=== PATIENT | female | born 1970 | race Caucasian/White ===

== ENCOUNTER 2017-04-08 22:52 | Observation (INO) | payer OTHER ==
--- NOTE | 2017-04-08 23:01 | PDOC ---
History of Present Illness - General History Source: Patient, Family Exam Limitations: No Limitations - History of Present Illness Initial Comments: 04/08/17 23:46 The patient is a 47 year old female, accompanied by two daughters, with a significant past medical history of TIA (2005), hypertension, congestive heart failure, remote history of pulmonary stenosis who presents to the emergency department by EMS s/p accidental overdose. The patient reports that she took three 1mg Klonopin, two 10mg Vicodin, Trazodone, Prozac, Qsymia and a sip of beer approx. one hour ago to help her sleep. The patient reports that she took two 1mg Klonopin at approx. two in the afternoon as well. The patient's daughter reports her mother was found unresponsive and cyanotic at home so she called 911. The patient reports waking up in the ambulance. The patient denies suicidal ideation and states she did not want to harm herself. She denies recent chest pain or shortness of breath. Allergies: NKA Primary Care Physician: Dr. Abel Boswell <Gibson Baum - Last Filed: 04/09/17 02:02> <Kem Chung - Last Filed: 04/09/17 02:29> - General Stated Complaint: ACCIDENTAL OVERDOSE Time Seen by Provider: 04/08/17 23:01 Past History <Gibson Baum - Last Filed: 04/09/17 02:02> - Past Medical History Cardiac Disorders: Yes CVA: Yes HTN: Yes - Surgical History Cardiac Surgery: Yes - Psycho/Social/Smoking Cessation Hx Anxiety: Yes Suicidal Ideation: No Smoking History: Current every day smoker Number of Cigarettes Smoked Daily: 20 'Breaking Loose' booklet given: 06/13/15 Hx Alcohol Use: Yes Drug/Substance Use Hx: No Substance Use Type: Alcohol <Kem Chung - Last Filed: 04/09/17 02:29> - Past Medical History Allergies/Adverse Reactions: Allergies Allergy/AdvReac Type Severity Reaction Status Date / Time No Known Allergies Allergy Verified 04/09/17 01:53 Home Medications: Ambulatory Orders Hydrocortisone 0.5% Cream [Hytone 0.5% Cream -] 1 applic TP TID #1 tube Review of Systems - Review of Systems Comments:: 04/08/17 23:49 CONSTITUTIONAL: +Fatigue. No fever, no chills. EYES: No visual changes ENT: No ear pain, no sore throat CARDIOVASCULAR: No chest pain, no palpitations RESPIRATORY: No cough, no SOB GI: No abdominal pain, no nausea, no vomiting, no constipation, no diarrhea GENITOURINARY: No dysuria, no frequency, no hematuria MUSKULOSKELETAL: No backpain, no joint pain, no myalgias SKIN: No rash NEURO: No headache <Gibson Baum - Last Filed: 04/09/17 02:02> *Physical Exam - Vital Signs Last Vital Signs Temp Pulse Resp BP Pulse Ox 98.0 F 76 18 122/88 99 04/08/17 23:03 04/08/17 23:03 04/08/17 23:03 04/08/17 23:03 04/08/17 23:03 - Physical Exam Comments: 04/09/17 00:01 CONSTITUTIONAL: Well-appearing; well-nourished; in no apparent distress HEAD: +Facial rosacea. EYES: PERRL; EOM intact ENMT: External appears normal; normal oropharynx NECK: Supple; non-tender; no cervical lymphadenopathy CARD: Normal S1, S2; no murmurs, rubs, or gallops RESP: Normal chest excursion with respiration; breath sounds clear and equal bilaterally; no wheezes, rhonchi, or rales ABD: Soft, non-distended; non-tender; no palpable organomegaly, no palpable hernias EXT: Normal ROM in all four extremities; non-tender to palpation; distal pulses intact SKIN: Warm, dry, no rash NEURO: No focal neurological deficiencies. <Gibson Baum - Last Filed: 04/09/17 02:02> Heart Score/ECG Review - ECG Intrepretation Comment:: 04/09/17 02:29 69, normal sinus rhythm, right atrial enlargement, ALONDRA, negative voltage criteria for LVH, no ST-T abnormalities, abnormal EKG. <Kem Chung - Last Filed: 04/09/17 02:29> ED Treatment Course - LABORATORY CBC & Chemistry Diagram: 04/09/17 00:02 04/09/17 00:02 <Gibson Baum - Last Filed: 04/09/17 02:02> - LABORATORY CBC & Chemistry Diagram: 04/09/17 00:02 04/09/17 00:02 <Kem Chung - Last Filed: 04/09/17 02:29> Medical Decision Making - Medical Decision Making 04/09/17 00:03 Patient is a 47-year-old female with history of CHF, TIA, smoking, anxiety and depression presents to the ER for a suspected benzodiazepines/opiate overdose. Patient reports that she had consumed 5 tablets of Klonopin-1 mg each and 2 Vicodin-10 mg each shortly prior to arrival and was found unresponsive and cyanotic, requiring administration of Narcan by EMS to regain normal mental status. Patient also reports that she taken trazodone Prozac and several sips of beer prior to the episode of unresponsiveness. Patient denies suicidal ideations. There is no previous history of suicidal attempts. On initial evaluation, patient is awake and alert, oriented 3; neurological exam reveals no focal deficits; lungs are clear to auscultation; there is no petechial rash. Will obtain CBC/CMP/set amount level/salicylate level/drug screen. Will observe. We'll administer additional doses of Narcan for respiratory depression or pupillary constriction. Given the long half-life of Klonopin, patient will require placement in observation for further episodes of respiratory depression. 04/09/17 02:04 Patient reassessed. Patient is noted to be lethargic with constricted pupils. Patient received 0.4 mg Narcan IV with complete arousable. Will place an knob's for further evaluation. <Kem Chung - Last Filed: 04/09/17 02:29> *DC/Admit/Observation/Transfer - Attestations Scribe Attestion: 04/08/17 23:51 Documentation prepared by Gibson Baum, acting as medical office manager for Kem Chung MD. <Gibson Baum - Last Filed: 04/09/17 02:02> - Discharge Dispostion Admit: Yes - Attestations Physician Attestion: 04/09/17 01:57 The documentation was prepared by the scribe under my direct supervision. I have reviewed the documentation which correctly represents the findings, medical decision-making and critical action taken by me. <Kem Chung - Last Filed: 04/09/17 02:29> Diagnosis at time of Disposition: Polypharmacy Accidental overdose Qualifiers: Encounter type: initial encounter Qualified Code(s): T50.901A - Poisoning by unspecified drugs, medicaments and biological substances, accidental ( unintentional), initial encounter Benzodiazepine (tranquilizer) overdose Qualifiers: Encounter type: initial encounter Injury intent: accidental or unintentional Qualified Code(s): T42.4X1A - Poisoning by benzodiazepines, accidental ( unintentional), initial encounter - Referrals Referrals: Abel Boswell [Primary Care Provider] -
[2017-04-08] MEDS ORDERED: NALOXONE HCL 0.4 MG/ML VIAL ONE (23:05)
[2017-04-08] MEDS ORDERED: ONDANSETRON 4 MG/2 ML VIAL ONE (23:06)
[2017-04-09 00:44] LABS: BASOPHIL 0.3 % (0-2.0); EOSINOPHIL 0.5 % (0-4.5); MCH 31.7 pg (25.7-33.7); MEAN CELL VOLUME 93.3 fl (80-96); MEAN PLT VOLUME 7.7 fl (7.5-11.1); NEUTROPHILS 87.1 % (42.8-82.8); PLATELET COUNT 227 K/MM3 (134-434); RDW 13.3 % (11.6-15.6); WHITE BLOOD COUNT 17.9 K/mm3 (4.0-10.0)
[2017-04-09 01:13] LABS: ALBUMIN 3.8 g/dl (3.4-5.0); ALK PHOS 78 U/L (45-117); ANION GAP 7 (8-16); BILIRUBIN,TOTAL 0.2 mg/dL (0.2-1.0); CALCIUM 8.6 mg/dL (8.5-10.1); CO2 31 mmol/L (21-32); CREATININE 0.9 mg/dL (0.55-1.02); GLUCOSE,RANDOM 115 mg/dL (74-106); SGOT/AST 13 U/L (15-37); SGPT/ALT 25 U/L (12-78); TOT PROT 6.5 g/dl (6.4-8.2)
[2017-04-09 01:19] LABS: ALCOHOL < 5.0 mg/dl (0-5)
[2017-04-09 01:50] LABS: URINE MARIJUANA THC POSITIVE ng/ml (CUTOFF=50)
[2017-04-09 01:52] LABS: SALICYLATE < 4.0 mg/dl (0.0-30.0)
[2017-04-09] MEDS ORDERED: NALOXONE HCL 0.4 MG/ML VIAL ONE (01:52)
[2017-04-09] MEDS ORDERED: ONDANSETRON 4 MG/2 ML VIAL IVPB PRN (01:57)
[2017-04-09] MEDS ORDERED: NICOTINE 14 MG/24 HOURS TOPICAL PATCH TD ONE (02:00)
--- NOTE | 2017-04-09 03:29 | HP ---
CHIEF COMPLAINT: accidental overdose. PCP: Dr. Abel Boswell HISTORY OF PRESENT ILLNESS: 47 yo F with significant PMHx of DM, TIA (2005), HTN, CHF, h/o pulmonary stenosis who presents to the emergency department by EMS s/p accidental overdose. The patient reports that she took three 1mg Klonopin, two 10mg Vicodin , Trazodone, Prozac, Qsymia ealier in the evening to help her sleep. The patient reports that she took two 1mg Klonopin at approx. two in the afternoon as well. Her daughtered reports her mother was found unresponsive and cyanotic at home so she called 911. The patient reports waking up in the ambulance. The patient denies suicidal ideation and states she did not want to harm herself. She denies recent chest pain or shortness of breath. ER course was notable for: (1)Given Narcane 0.4mg (2)EKG shows NSR , SHANNON, no st or t wave abnormality (3) Recent Travel:denies PAST MEDICAL HISTORY: TIA (2005), HTN, CHF, h/o pulmonary stenosis, depression, and anxiety , obesity and DM PAST SURGICAL HISTORY: VSD closure. Social History: Smokinppd Alcohol:socially Drugs: marijuana Family History: Father - ASHD Allergies No Known Allergies Allergy (Verified 04/09/17 01:53) HOME MEDICATIONS: Home Medications Medication Instructions Recorded Hydrocortisone 0.5% Cream [Hytone 1 applic TP TID #1 tube 06/13/15 0.5% Cream -] REVIEW OF SYSTEMS CONSTITUTIONAL: Absent: fever, chills, diaphoresis, generalized weakness, malaise, loss of appetite, weight change HEENT: Absent: rhinorrhea, nasal congestion, throat pain, throat swelling, difficulty swallowing, mouth swelling, ear pain, eye pain, visual changes CARDIOVASCULAR: Absent: chest pain, syncope, palpitations, irregular heart rate, lightheadedness , peripheral edema RESPIRATORY: Absent: cough, shortness of breath, dyspnea with exertion, orthopnea, wheezing, stridor, hemoptysis GASTROINTESTINAL: Absent: abdominal pain, abdominal distension, nausea, vomiting, diarrhea, constipation, melena, hematochezia GENITOURINARY: Absent: dysuria, frequency, urgency, hesitancy, hematuria, flank pain, genital pain MUSCULOSKELETAL: Absent: myalgia, arthralgia, joint swelling, back pain, neck pain SKIN: Absent: rash, itching, pallor HEMATOLOGIC/IMMUNOLOGIC: Absent: easy bleeding, easy bruising, lymphadenopathy, frequent infections ENDOCRINE: Absent: unexplained weight gain, unexplained weight loss, heat intolerance, cold intolerance NEUROLOGIC: Absent: headache, focal weakness or paresthesias, dizziness, unsteady gait, seizure, mental status changes, bladder or bowel incontinence PSYCHIATRIC: Absent: anxiety, depression, suicidal or homicidal ideation, hallucinations. PHYSICAL EXAMINATION Vital Signs - 24 hr 04/08/17 23:03 Temperature 98.0 F Pulse Rate 76 Respiratory 18 Rate Blood Pressure 122/88 O2 Sat by Pulse 99 Oximetry (%) GENERAL: Awake, lethargic in no acute distress. HEAD: Normal with no signs of trauma. EYES: PERRLA,WOMI, sclera anicteric, conjunctiva clear. No lid lag. EARS, NOSE, THROAT: Moist mucous membranes. NECK: supple, no jvd, LUNGS: Breath sounds equal, clear to auscultation bilaterally. No wheezes, and no crackles. No accessory muscle use. HEART: RRR, normal S1 and S2 , 4/6 Systolic murmur greater on expiration ABDOMEN: Soft,obese, nontender, not distended, normoactive bowel sounds, no guarding, no rebound, no masses. MUSCULOSKELETAL: Normal range of motion at all joints. No bony deformities or tenderness. No CVA tenderness. UPPER EXTREMITIES: 2+ pulses, warm, well-perfused. No cyanosis. No clubbing. No peripheral edema. LOWER EXTREMITIES: 2+ pulses, warm, well-perfused. No calf tenderness. No peripheral edema. NEUROLOGICAL: lethargic but awake. PSYCHIATRIC: Cooperative. Good eye contact. Appropriate mood and affect. Laboratory Results - last 24 hr 04/09/17 04/09/17 04/09/17 00:02 00:02 00:02 WBC 17.9 H RBC 4.54 Hgb 14.4 Hct 42.3 MCV 93.3 MCH 31.7 MCHC 34.0 RDW 13.3 Plt Count 227 MPV 7.7 Neutrophils % 87.1 H Lymphocytes % 5.2 L Monocytes % 6.9 Eosinophils % 0.5 Basophils % 0.3 Sodium 140 Potassium 4.3 Chloride 102 Carbon Dioxide 31 Anion Gap 7 L BUN 16 Creatinine 0.9 Creat Clearance w eGFR > 60 Random Glucose 115 H Calcium 8.6 Total Bilirubin 0.2 AST 13 L ALT 25 Alkaline Phosphatase 78 Total Protein 6.5 Albumin 3.8 Serum , Qual Negative Salicylates Opiates Screen Methadone Screen Acetaminophen Barbiturate Screen Phencyclidine Screen Ur Amphetamines Screen MDMA (Ecstasy) Screen Benzodiazepines Screen Cocaine Screen U Marijuana (THC) Screen Alcohol, Quantitative 04/09/17 04/09/17 00:02 00:54 WBC RBC Hgb Hct MCV MCH MCHC RDW Plt Count MPV Neutrophils % Lymphocytes % Monocytes % Eosinophils % Basophils % Sodium Potassium Chloride Carbon Dioxide Anion Gap BUN Creatinine Creat Clearance w eGFR Random Glucose Calcium Total Bilirubin AST ALT Alkaline Phosphatase Total Protein Albumin Serum , Qual Salicylates < 4.0 Opiates Screen Positive Methadone Screen Negative Acetaminophen < 2.000 L Barbiturate Screen Negative Phencyclidine Screen Negative Ur Amphetamines Screen Negative MDMA (Ecstasy) Screen Negative Benzodiazepines Screen Positive Cocaine Screen Negative U Marijuana (THC) Screen Positive Alcohol, Quantitative < 5.0 ASSESSMENT/PLAN: 47 yo F with significant PMHx of DM, TIA (2005), HTN, CHF, h/o pulmonary stenosis placed on observation s/p accidental overdose. Problem List - Problem (1) Accidental overdose Assessment/Plan: * Given Narcane 0.4mg * placed on obs tele. * will continue to monitor for respiratory depression. 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 - New Patient This patient is new to me today: Yes Date on this admission: 04/09/17 - Critical Care Critical Care patient: No
[2017-04-09] MEDS ORDERED: SODIUM CHLORIDE 500 ML IV STA (04:49)
[2017-04-09 05:11] VITALS: BMI 34.5
[2017-04-09 05:14] LABS: URINE APPEARANCE SLCLOUDY; URINE BILIRUBIN NEGATIVE (NEGATIVE); URINE BLOOD NEGATIVE (NEGATIVE); URINE GLUCOSE (UA) 2+ (NEGATIVE); URINE KETONE NEGATIVE (NEGATIVE); URINE NITRITE POSITIVE (NEGATIVE); URINE UROBILINOGEN NEGATIVE mg/dL (0.2-1.0)
[2017-04-09 05:17] LABS: URINE COLOR YELLOW; URINE LEUK ESTERASE 1+ (NEGATIVE); URINE PROTEIN 1+ (NEGATIVE)
--- NOTE | 2017-04-09 05:17 | PN ---
Teaching Attending Note Name of Resident: Abhinav Grissom ATTENDING PHYSICIAN STATEMENT I saw and evaluated the patient. I reviewed the resident's note and discussed the case with the resident. I agree with the resident's findings and plan as documented. SUBJECTIVE: This is a 47 year old woman with a history of type 2 DM, TIA, HTN, CHF, pulmonary stenosis, depression/anxiety who comes to the ER after her daughter found her unresponsive and cyanotic at home. She was treated with Narcan and she awoke. She says that she took 3 Klonopin 1 mg tabs, 2 Vicodin 10 mg tabs, Trazodone, Prozac, and Qsymia in order to sleep. She had also taken 2 Klonopin 1 mg tabs during the day. She denies suicidal thoughts and says she was depressed and wanted to sleep. OBJECTIVE: Vital Signs Period Temp Pulse Resp BP Sys/Nazario Pulse Ox Last 24 Hr 98.0 F-98.2 F 64-76 16-18 118-129/62-88 95-99 HEART: S1S2, RRR LUNGS: Clear ABDOMEN: Obese, soft, non-tender, non-distended, normal BS EXTREMITIES: No edema ASSESSMENT AND PLAN: This is a 47 year old woman with a history of type 2 DM, TIA, HTN, CHF, pulmonary stenosis, depression/anxiety who presents to the ER after being found unresponsive and cyanotic after taking multiple medications. 1. Overdose with multiple medications (Trazodone, Klonopin, Vicodin, Prozac, Qsymia) - Patient denies this was a suicide attempt - Observe on telemetry - Psychiatry consult 2. Type 2 DM - Fingersticks with Novolog sliding scale 3. HTN - Continue Toprol XL 4. Depression/anxiety - Hold medications secondary to overdose 5. History of TIA 6. Nicotine dependence - Nicotine patch
[2017-04-09 05:18] LABS: URINE BACTERIA MODERATE /hpf (NONE SEEN); URINE HYALINE CAST 1 /lpf; URINE MUCUS MODERATE; URINE RBC <1 /hpf (0-3); URINE WBC 40 /hpf (3-5)
[2017-04-09 06:51] VITALS: TEMP 97.9
[2017-04-09 09:14] LABS: MCH 31.6 pg (25.7-33.7); MCHC 33.8 g/dl (32.0-36.0); MEAN CELL VOLUME 93.4 fl (80-96); MEAN PLT VOLUME 7.9 fl (7.5-11.1); PLATELET COUNT 202 K/MM3 (134-434); RDW 14.1 % (11.6-15.6); WHITE BLOOD COUNT 10.7 K/mm3 (4.0-10.0)
--- NOTE | 2017-04-09 09:17 | EKG ---
Test Reason : Blood Pressure : / mmHG Vent. Rate : 069 BPM Atrial Rate : 069 BPM P-R Int : 186 ms QRS Dur : 136 ms QT Int : 454 ms P-R-T Axes : 042 066 021 degrees QTc Int : 486 ms NORMAL SINUS RHYTHM WITH 1ST DEGREE A-V BLOCK POSSIBLE LEFT ATRIAL ENLARGEMENT RIGHT BUNDLE BRANCH BLOCK ABNORMAL ECG NO PREVIOUS ECGS AVAILABLE Confirmed by MD DARREL, HAKEEM ([id number]) on 04/09/2017 9:17:20 AM Referred By: Confirmed By:HAKEEM ROJO MD
[2017-04-09 09:26] LABS: ANION GAP 9 (8-16); CALCIUM 8.3 mg/dL (8.5-10.1); CO2 29 mmol/L (21-32); CREATININE 0.8 mg/dL (0.55-1.02); GLUCOSE,RANDOM 130 mg/dL (74-106); MAGNESIUM 2.1 mg/dL (1.8-2.4); PHOSPHOROUS 3.6 mg/dL (2.5-4.9)
[2017-04-09] MEDS ORDERED: METOPROLOL TARTRATE 50 MG TABLET (FP) PO SCH (10:00)
[2017-04-09] MEDS ORDERED: INSULIN SLIDING SCALE (NOVOLOG) 1 VIAL SQ SCH (11:00)
--- NOTE | 2017-04-09 11:33 | PN ---
Physical Exam: SUBJECTIVE: Patient seen and examined at the bedside. She was tearful on exam but verbalizing anxiety and multiple stresses at home. She denies suicide attempt and took the multiple pills so that she can rest and sleep. She reports insomnia secondary to her stress. States she lives with her sick parents and helps to care for them. Further she states that her marital situation is very strained and feels overwhelmed with taking care of her parents and three daughters. States her spouse does not support her. She states that 3 days ago she had "the worst chest pain that radiated to her jaw and left arm". She wanted to come to the ER but her did not want to take her. She then attempted to take her self to [facility] but after she got dressed to go to [facility], the pain subsided and she decided not to go She denies severe chest pain on exam, but states she has some midsternal discomfort, intermittent heart burn and shortness of breath with ambulation. She also reports congenital heart disease and 2 surgical repairs, the first in 1970. States she also has COPD. OBJECTIVE: Her PCP/Security Systems Manager is Silvino Benites Psychiatrist PAD MACHINE FEEDER is Joseline Mccollum MD Trend troponins, cardiology consult Awaiting psych input Vital Signs Period Temp Pulse Resp BP Sys/Nazario Pulse Ox Last 24 Hr 97.9 F-98.2 F 64-68 16-17 111-129/50-76 95-96 GENERAL: The patient is awake, alert, and fully oriented, in no acute distress. HEAD: Normal with no signs of trauma. EYES: PERRL, extraocular movements intact, sclera anicteric, conjunctiva clear. No ptosis. ENT: Ears normal, nares patent, oropharynx clear without exudates, moist mucous membranes. NECK: Trachea midline, full range of motion, supple. LUNGS: Right lung clear to auscultation, left lung diminished at the bases, on 2 liters of oxygen intermittently HEART: Regular rate and rhythm, S1, S2 without murmur, rub or gallop. ABDOMEN: Soft, nontender, nondistended, normoactive bowel sounds, no guarding, no rebound, no hepatosplenomegaly, no masses. EXTREMITIES: no edema. NEUROLOGICAL: Normal speech, gait not observed. PSYCH: Calm, cooperative SKIN: Warm, dry, normal turgor, no rashes or lesions noted Laboratory Results - last 24 hr 04/09/17 04/09/17 04/09/17 05:00 06:04 08:20 WBC 10.7 H D RBC 4.47 Hgb 14.1 Hct 41.8 MCV 93.4 MCH 31.6 MCHC 33.8 RDW 14.1 Plt Count 202 MPV 7.9 Sodium Potassium Chloride Carbon Dioxide Anion Gap BUN Creatinine POC Glucometer 121 Random Glucose Calcium Phosphorus Magnesium Urine Color Yellow Urine Appearance Slcloudy Urine pH 6.0 Ur Specific [place] 1.020 Urine Protein 1+ H Urine Glucose (UA) 2+ H Urine Ketones Negative Urine Blood Negative Urine Nitrite Positive Urine Bilirubin Negative Urine Urobilinogen Negative Ur Leukocyte Esterase 1+ H Urine RBC <1 Urine WBC 40 Ur Epithelial Cells Few Urine Bacteria Moderate Hyaline Casts 1 Urine Mucus Moderate 04/09/17 08:20 WBC RBC Hgb Hct MCV MCH MCHC RDW Plt Count MPV Sodium 139 Potassium 4.1 Chloride 101 Carbon Dioxide 29 Anion Gap 9 BUN 16 Creatinine 0.8 POC Glucometer Random Glucose 130 H Calcium 8.3 L Phosphorus 3.6 Magnesium 2.1 Urine Color Urine Appearance Urine pH Ur Specific [place] Urine Protein Urine Glucose (UA) Urine Ketones Urine Blood Urine Nitrite Urine Bilirubin Urine Urobilinogen Ur Leukocyte Esterase Urine RBC Urine WBC Ur Epithelial Cells Urine Bacteria Hyaline Casts Urine Mucus Active Medications Generic Name Dose Route Start Last Admin Trade Name Freq PRN Reason Stop Dose Admin Insulin Aspart 1 vial 04/09/17 11:00 Novolog Vial Sliding Scale - SQ ACHS NICKI Protocol Metoprolol Tartrate 50 mg 04/09/17 10:00 04/09/17 10:49 Lopressor - PO 50 mg DAILY NICKI Administration Ondansetron HCl 4 mg 04/09/17 01:57 Zofran Injection IVPB Q6H PRN NAUSEA ASSESSMENT/PLAN: Patient is a 47 year old female with a significant past medical history of diabetes mellitus, TIA at age 35, hypertension, CHF, pulmonary stenosis, 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 She is also a current every day smoker - 1 pack per day. Psyche: Accidental overdose with multiple medications A/P: Given Narcan 0.4mg x 1, placed on tele observation for close monitoring, monitor for any arrhythmias On supplemental oxygen prn Patient has prescriptions for Trazodone, Klonopin, Prozac and is following a psychiatrist outpatient States she has script for Vicodin from a dental procedure and had 10 pills left Appears to be an accidental overdose, denies suicide attempt Anxiety/depression A/P: Has a psychiatrist outpatient Meds on hold secondary to overdose Awaiting psyche follow up/recommendations Tobacco dependence A/P: counseled on cessation Nicotine patch Cardiology: Chest pain, shortness of breath - acute A/P: Patient with multiple cardiac risk factors: congentital heart disease, pulmonary stenosis, CHF, TIA, Hypertension Troponins x 3 ordered, cardiology consulted Patient has cardiology that she follows outpatient, last saw patient 1 month ago for hypertension Cardiology consulted for acute chest pain Hypertension - chronic A/P: On Lopressor 50mg daily, monitor BP Cardiology notes reviewed Endocrine: Type 2 diabetes mellitus - chronic A/P: monitor bgms, Novolog ac/hs Pulmonary: COPD - not in any acute exacerbation A/P: albuterol prn, oxygen prn Patient asking for a pulmonary consult for outpatient follow up Neuro: TIA history at age 35 A/P: on ASA 81mg F.E.N. Fluids: tolerating PO Electrolytes: monitor Nutrition: diabetic diet Prophylaxis: DVT: SCDs GI: deferred Disposition. OBS, Full code. Visit type - Emergency Visit Emergency Visit: Yes ED Registration Date: 04/09/17 Care time: The patient presented to the Emergency Department on the above date and was hospitalized for further evaluation of their emergent condition. - New Patient This patient is new to me today: Yes Date on this admission: 04/09/17 - Critical Care Critical Care patient: No - Discharge Referral Referred to [facility] Med P.C.: No
[2017-04-09] MEDS ORDERED: ALBUTEROL SO4 2.5/IPRATROPIUM 0.5 INH SOL 3 ML VIAL.NEB. NEB PRN (11:53)
[2017-04-09 12:05] LABS: TROPONIN I 0.03 ng/ml (0.00-0.05)
--- NOTE | 2017-04-09 13:54 | PN ---
Progress Note (short form) - Note Progress Note: Chief Complaint: Events noted notes reviewed, lethargy related to probable accidental drug overdose, chest pain syndrome in a patient with known history of HTN, newly diagnosed DM, tobacco abuse History of Present Illness: Seen and examined on telemetry. Full consult dictated - Current Medication List Current Medications Albuterol/Ipratropium (Duoneb -) 1 amp NEB Q6H PRN PRN Reason: SHORTNESS OF BREATH Insulin Aspart (Novolog Vial Sliding Scale -) 1 vial SQ ACHS NICKI PRN Reason: Protocol Metoprolol Tartrate (Lopressor -) 50 mg PO DAILY [facility] Last Admin: 04/09/17 10:49 Dose: 50 mg Ondansetron HCl (Zofran Injection) 4 mg IVPB Q6H PRN PRN Reason: NAUSEA - Review of Systems Constitutional: denies: Chills, Fever Cardiovascular: As Noted Above Respiratory: denies: Cough or Sputum Production Gastrointestinal: denies: Nausea, Vomiting, Diarrhea, Constipation or Abdominal Discomfort Musculoskeletal: No symptoms Reported Neurological: denies: Dizziness or Headaches - Objective Vital Signs: Last Vital Signs Temp Pulse Resp BP Pulse Ox 97.9 F 68 17 111/50 95 04/09/17 05:59 04/09/17 05:59 04/09/17 05:59 04/09/17 05:59 04/09/17 04:50 Intake & Output 04/06/17 04/07/17 04/08/17 04/09/17 23:59 23:59 23:59 23:59 Intake Total 10 Balance 10 Weight 190 lb 192 lb 1.6 oz Neck: Supple Negative JVD No Bruit Cardiovascular: S1 S2 Regular Rate Rhythm Grade 2-3/6 Systolic Apical Murmur Respiratory: Clear to A&P Gastrointestinal: Soft Benign Normal Bowel Sounds Ext: Negative Edema Labs: Troponin, BNP 04/09/17 04/09/17 08:20 11:40 Troponin I 0.03 Cancelled CBC, BMP 04/09/17 08:20 04/09/17 08:20 Hepatic Panel Total Bilirubin 0.2 mg/dL (0.2-1.0) 04/09/17 00:02 AST 13 U/L (15-37) L 04/09/17 00:02 ALT 25 U/L (12-78) 04/09/17 00:02 Alkaline Phosphatase 78 U/L (45-117) 04/09/17 00:02 Albumin 3.8 g/dl (3.4-5.0) 04/09/17 00:02 Assessment/Plan ASSESSMENT: 1. Lethargy related to probable accidental drug overdose 2. History of chest pain syndrome etiology to be determined,CAD angina pectoris to be excluded 3. HTN 4. Newly diagnosed DM 5. Probable hypercholesterolemia 6. 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 History of TIA probably related to ASD post endovascular closure, as per patient (Amplatzer septal occluder) 8. Clinical depression and anxiety disorder 9. Tobacco abuse 10. Morbid obesity PLAN: 1. Continue B-Blockers but recommend substitution of Lopressor by Bystolic, can be done as outpatient 2. Continue ASA 3. Recommend addition of ACEI or ARBS considering co-morbidities, can be done as outpatient 4. Obtain Lipid profile and therapy initiation accordingly, can be done as outpatient 5. Counselled smoking cessation and abstinence 6. Recommend outpatient evaluation including echocardiography and MPI for further evaluation Samaria Maier M.D.
[2017-04-09] MEDS ORDERED: NICOTINE 14 MG/24 HOURS TOPICAL PATCH TD SCH (14:00)
[2017-04-09 14:17] VITALS: BP 122/69
--- NOTE | 2017-04-09 15:24 | CON.PSY ---
Psychiatry Consult Chief Complaint: I never tried to kill myself. I just wanted to sleep. I am not suicidal Symptoms: reports: Irritability, Anxiety - Previous Psychiatric Treatment Outpatient: Less than 6 mos ago Inpatient: One prior admission - Previous Substance Abuse Treatment Outpatient: None Inpatient: None - Reason for Previous Treatment Reason for Previous Treatment: Major Depression - Current Medications Current Medications: Active Medications Albuterol/Ipratropium (Duoneb -) 1 amp NEB Q6H PRN PRN Reason: SHORTNESS OF BREATH Aspirin (Ecotrin -) 81 mg PO DAILY [facility] Insulin Aspart (Novolog Vial Sliding Scale -) 1 vial SQ ACHS NICKI PRN Reason: Protocol Last Admin: 04/09/17 11:25 Dose: Not Given Metoprolol Tartrate (Lopressor -) 50 mg PO DAILY [facility] Last Admin: 04/09/17 10:49 Dose: 50 mg Nicotine (Nicoderm Patch -) 14 mg TD DAILY [facility] Last Admin: 04/09/17 14:25 Dose: Not Given Ondansetron HCl (Zofran Injection) 4 mg IVPB Q6H PRN PRN Reason: NAUSEA - Allergies Allergies: Allergies Allergy/AdvReac Type Severity Reaction Status Date / Time No Known Allergies Allergy Verified 04/09/17 01:53 - Current Living Status Usual Living Arrangement: With Child - Current Mental Status Evaluation Appearance: Well Groomed Attitude: Cooperative - Affect Affect: Full Range Appropriateness: Appropriate to Content - Mood Mood: Anxious - Speech/Language Expressive: Coherent Receptive: Age Appropriate Comprehension of Spoken Words - Psychomotor Activity Psychomotor Activity: Hyperactive - Thought Process Thought Process: Intact - Thought Content Hallucinations: Absent Delusions: Absent - Self Perception Self Perception: No Impairment - Cognition Attention: Alert Orientation: Time Memory, Immediate Recall: Intact Memory, Short Term: 3/3 Memory, Remote: Intact Memory, Remote with Promptin/3 - Concentration Serial Sevens Intact: Yes Simple Calculations Intact: Yes - Abstraction Proverb Interpretation: Intact Judgement: Minimally Impaired - Insight Insight: Intact - Impulse Control Impulse Control: Minimally Impaired - Suicidal Ideation Suicidal Ideation: No - Homicidal Ideation Homicidal Ideation: No Assessment/Plan 1) patient is not acutely sucidal at tyhis time. 2) Continue with Prozac. 3) dischrge home when medically stable. 4) follow up with pvt .
[2017-04-09 16:16] VITALS: PULSE 73
--- NOTE | 2017-04-09 17:54 | DS ---
Physical Exam: SUBJECTIVE: Patient seen and examined at the bedside. OBJECTIVE: Troponins negative x 2 Hypoxia with ambulation, desats to 87% on room air Endorses shortness of breath 94% on 2 liters of nasal cannula Her PCP/Glass Setter is Silvino Benites Psychiatrist [employer] OPERATOR HELPER is Joseline Mccollum MD Vital Signs Period Temp Pulse Resp BP Sys/Nazario Pulse Ox Last 24 Hr 97.9 F-98.2 F 64-73 16-18 111-129/50-76 91-96 PHYSICAL EXAM GENERAL: The patient is awake, alert, and fully oriented, in no acute distress. HEAD: Normal with no signs of trauma. EYES: PERRL, extraocular movements intact, sclera anicteric, conjunctiva clear. No ptosis. ENT: Ears normal, nares patent, oropharynx clear without exudates, moist mucous membranes. NECK: Trachea midline, full range of motion, supple. LUNGS: Right lung clear to auscultation, left lung diminished at the bases, on 2 liters of oxygen intermittently HEART: Regular rate and rhythm, S1, S2 without murmur, rub or gallop. ABDOMEN: Soft, nontender, nondistended, normoactive bowel sounds, no guarding, no rebound, no hepatosplenomegaly, no masses. EXTREMITIES: no edema. NEUROLOGICAL: Normal speech, gait not observed. PSYCH: Calm, cooperative SKIN: Warm, dry, normal turgor, no rashes or lesions noted LABS Laboratory Results - last 24 hr 04/09/17 04/09/17 04/09/17 05:00 06:04 08:20 WBC 10.7 H D RBC 4.47 Hgb 14.1 Hct 41.8 MCV 93.4 MCH 31.6 MCHC 33.8 RDW 14.1 Plt Count 202 MPV 7.9 Sodium Potassium Chloride Carbon Dioxide Anion Gap BUN Creatinine POC Glucometer 121 Random Glucose Calcium Phosphorus Magnesium Troponin I Urine Color Yellow Urine Appearance Slcloudy Urine pH 6.0 Ur Specific [place] 1.020 Urine Protein 1+ H Urine Glucose (UA) 2+ H Urine Ketones Negative Urine Blood Negative Urine Nitrite Positive Urine Bilirubin Negative Urine Urobilinogen Negative Ur Leukocyte Esterase 1+ H Urine RBC <1 Urine WBC 40 Ur Epithelial Cells Few Urine Bacteria Moderate Hyaline Casts 1 Urine Mucus Moderate 04/09/17 04/09/17 04/09/17 08:20 11:40 14:40 WBC RBC Hgb Hct MCV MCH MCHC RDW Plt Count MPV Sodium 139 Potassium 4.1 Chloride 101 Carbon Dioxide 29 Anion Gap 9 BUN 16 Creatinine 0.8 POC Glucometer Random Glucose 130 H Calcium 8.3 L Phosphorus 3.6 Magnesium 2.1 Troponin I 0.03 Cancelled < 0.02 Urine Color Urine Appearance Urine pH Ur Specific [place] Urine Protein Urine Glucose (UA) Urine Ketones Urine Blood Urine Nitrite Urine Bilirubin Urine Urobilinogen Ur Leukocyte Esterase Urine RBC Urine WBC Ur Epithelial Cells Urine Bacteria Hyaline Casts Urine Mucus HOSPITAL COURSE: Date of Admission:04/09/17 Date of Discharge: 04/09/17 ASSESSMENT/PLAN: Patient is a 47 year old female with a significant past medical history of diabetes mellitus, TIA at age 35, hypertension, CHF, pulmonary stenosis, 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 She is also a current every day smoker - 1 pack per day. Psyche: Accidental overdose with multiple home medications A/P: In ED given Narcan 0.4mg x 1, placed on tele observation for close monitoring, no arrhythmias on tele On supplemental oxygen prn Patient has prescriptions for Trazodone, Klonopin, Prozac and is following a psychiatrist outpatient States she has script for Vicodin from a dental procedure and had 10 pills left Appears to be an accidental overdose, denies suicide attempt Psyche saw patient, notes reviewed, restart Prozac Instructed patient to discontinue taking the Trazadone, Klonopin and Vicodin and follow up with her psychiatrist She is in agreement Anxiety/depression - chronic A/P: Has a psychiatrist outpatient Psyche evaluated Tobacco dependence A/P: counseled on importance of cessation with home oxygen Patient in agreement Cardiology: Chest pain, shortness of breath - resolved A/P: Patient with multiple cardiac risk factors: congentital heart disease, pulmonary stenosis, CHF, TIA, Hypertension Troponins x 2 negative Cardiology notes reviewed Patient has cardiology that she follows outpatient, last saw patient 1 month ago for hypertension Patient agrees to follow her home resaw tailer for outpatient workup Hypertension - chronic A/P: On Lopressor 50mg daily, monitor BP Cardiology notes reviewed Endocrine: Type 2 diabetes mellitus - chronic A/P: monitor bgms, Novolog ac/hs Pulmonary: COPD/Pulmonary stenosis - chronic A/P: albuterol prn, home oxygen and portable tank ordered Neuro: TIA history at age 35, no residuals noted A/P: on ASA 81mg Disposition. Discharge home with cardiology and psychiatrist follow up. Full code. Minutes to complete discharge: 60 Discharge Summary Reason For Visit: ACCIDENTAL OVERDOSE Current Active Problems Accidental overdose (Acute) Benzodiazepine (tranquilizer) overdose (Acute) HTN (hypertension) (Acute) Polypharmacy (Acute) Condition: Improved - Instructions Diet, Activity, Other Instructions: Mrs. Murray: Please follow up with your PCP and psychiatrist within 1-2 weeks after discharge for further cardiac workup. Continue taking the Prozac as ordered, but do not take Klonopin, Trazadone or Qsymia until you are seen by your psychiatrist as your medications may need to be adjusted. Do not take the Vicodin any longer. Please call with any questions that you may have. [facility] [phone] Referrals: Abel Boswell [Primary Care Provider] - Disposition: HOME - Home Medications Comprehensive Discharge Medication List: Ambulatory Orders Albuterol 2.5/Ipratropium 0.5 [Duoneb -] 1 amp NEB Q6H PRN #0 amp 04/09/17 Albuterol Sulfate [Proair Hfa -] 8.5 gm DAILY 04/09/17 Aspirin Coated [Ecotrin -] 81 mg PO DAILY #30 tab 04/09/17 Fluoxetine HCl 40 mg PO DAILY 04/09/17 Metoprolol Tartrate 50 mg PO DAILY 04/09/17 This patient is new to me today: Yes Date on this admission: 04/10/17 Emergency Visit: Yes ED Registration Date: 04/09/17 Care time: The patient presented to the Emergency Department on the above date and was hospitalized for further evaluation of their emergent condition. Critical Care patient: No - Discharge Referral Referred to [facility] No
--- NOTE | 2017-04-10 09:51 | EKG ---
Test Reason : Blood Pressure : / mmHG Vent. Rate : 073 BPM Atrial Rate : 073 BPM P-R Int : 178 ms QRS Dur : 136 ms QT Int : 458 ms P-R-T Axes : 069 082 044 degrees QTc Int : 504 ms NORMAL SINUS RHYTHM BIATRIAL ENLARGEMENT RIGHT BUNDLE BRANCH BLOCK POSSIBLE INFERIOR INFARCT , AGE UNDETERMINED ABNORMAL ECG WHEN COMPARED WITH ECG OF 09-APR-2017 02:23, NO SIGNIFICANT CHANGE WAS FOUND Confirmed by MD DARREL, HAKEEM ([id number]) on 04/10/2017 9:50:43 AM Referred By: NEHA ARGUETA Confirmed By:HAKEEM ROJO MD
[2017-04-10] MEDS ORDERED: FLUoxetine HCL 20 MG CAPSULE (FP) PO SCH (10:00)
[2017-04-10] MEDS ORDERED: ASPIRIN COATED 81 MG TABLET.EC PO SCH (10:00)
--- NOTE | 2017-04-10 13:33 | CONS ---
DATE OF CONSULTATION: 04/09/2017 REQUESTING PHYSICIAN: Hospitalist. CHIEF COMPLAINT: Altered mental status, history of chest pain, cardiovascular evaluation. 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 Patient apparently had ingested anxiolytics and, in addition, painkillers in conjunction accidentally subsequent to which she was lethargic. The patient currently is awake and alert and oriented. Patient reported recently sudden onset of retrosternal chest discomfort described as burning sensation which subsided spontaneously after a few hours. Patient has been reporting exertional dyspnea. Patient denies any orthopnea, paroxysmal nocturnal dyspnea, or peripheral edema. Patient denies any palpitations, dizziness, lightheadedness, or syncope. Patient has been reporting fatigue and tiredness. PAST MEDICAL HISTORY: Hypertensive cardiovascular disease, recently noted hyperglycemia, congenital pulmonic valve stenosis post surgical intervention, atrial septal defect post endovascular closure, transient ischemic attack, questionable chronic obstructive pulmonary disease, anxiety disorder, clinical depression. SOCIAL HISTORY: A smoker. FAMILY HISTORY: Positive for coronary artery disease. ALLERGIES: None reported. Medical therapy at home included clonazepam, fluoxetine, Lopressor, ProAir HFA, trazodone. REVIEW OF SYSTEMS: Head and Neck: Denies headache, photophobia, blurring of vision. Respiratory: No cough or sputum production. Cardiovascular: As noted above. Gastrointestinal: Denies nausea, vomiting, diarrhea, abdominal discomfort. Genitourinary: No symptoms reported. Musculoskeletal: Low back discomfort related to degenerative lumbosacral disk disease. PHYSICAL EXAMINATION: Vital Signs: Blood pressure is 111/50 mmHg, pulse rate is 68 beats per minute, temperature 97.9 degrees. Head and Neck: Pupils equally reactive to light and accommodation. Extraocular muscles intact. Anicteric sclerae. Negative JVD. No bruit appreciated. Chest: Clear to auscultation and percussion. Cardiovascular: S1, S2 regular. Grade 2-3/6 systolic apical murmur. No clicks or gallops. Abdomen: Soft, benign. Normoactive bowel sounds. Extremities: Negative edema. Intact distal pulses. No calf tenderness. Electrocardiogram reveals sinus rhythm with right bundle branch block. Troponin I and CPK were noted. CBC revealed white cell count 10.7, hemoglobin 14.1, platelet count 202. Basic metabolic profile revealed sodium 139, potassium 4.1, BUN of 16, creatinine 0.8, glucose 130. ASSESSMENT: 1. Lethargy related to probable accidental drug overdose. 2. History of chest pain syndrome, etiology of which is to be determined. 3. Coronary artery disease, angina pectoris to be excluded. 4. Hypertensive cardiovascular disease. 5. Newly diagnosed diabetes mellitus. 6. Probable hypercholesterolemia. 7. History of congenital pulmonic valve stenosis, post surgical intervention. 8. History of transient ischemic attack, probably related to atrial septal defect, post endovascular closure, as per patient, Amplatzer septal occluder device. 9. Clinical depression/anxiety disorder. 10. Tobacco abuse. 11. Morbid obesity. RECOMMENDATIONS: 1. Continuation of beta-cy therapy but recommend substitution of Lopressor by Bystolic, can be done as an outpatient. 2. Continuation of aspirin therapy. 3. Recommend addition of RAMIREZ inhibitor or angiotensin-receptor cy considering the above-noted comorbidities, can be done as outpatient. 4. Obtain lipid profile and therapy initiation accordingly, can be done as an outpatient. 5. Patient was strongly counseled on smoking cessation and abstinence. 6. Recommend outpatient evaluation including echocardiography and myocardial perfusion imaging study. Discussed in detail with the patient. Thank you for the kind referral. PAWEL LUZ M.D. [id number]
== END 2017-04-09 18:24 | disposition home or self-care (01) ==
LOC: JER 22:52 → JERBED 04-09 02:06 → J8W 04-09 04:38 → J4W 04-09 06:36
PROVIDERS: ADMIT Internal Medicine; ATTEND Nurse Practitioner Family
PROC: 3E0337Z Introduction of Electrolytic and Water Balance Substance into Peripheral Vein, Percutaneous Approach (ICD-10-PCS; principal; 2017-04-09)
DX: T42.4X1A Poisoning by benzodiazepines, accidental (unintentional), initial encounter (principal); Y92.9 Unspecified place or not applicable; I10 Essential (primary) hypertension; I50.9 Heart failure, unspecified; F17.210 Nicotine dependence, cigarettes, uncomplicated; Z86.73 Personal history of transient ischemic attack (TIA), and cerebral infarction without residual deficits; Z86.79 Personal history of other diseases of the circulatory system; Z79.899 Other long term (current) drug therapy; E11.9 Type 2 diabetes mellitus without complications; F41.9 Anxiety disorder, unspecified; F32.9 Major depressive disorder, single episode, unspecified; E66.01 Morbid (severe) obesity due to excess calories; Z68.35 Body mass index [BMI] 35.0-35.9, adult; R53.83 Other fatigue
CPT/HCPCS: 36415; 71010-TC; 80048; 80053; 80307; 81003; 81015; 83735; 84100; 84484; 84703; 85025; 85027; 87086; 87186; 93005; 93010; 94761; 99285-25; G0378

== ENCOUNTER 2024-01-28 17:25 | Inpatient (IN) | payer BC, OTHER ==
[2024-01-28 20:25] LABS: CHLORIDE 105 mmol/L (98-107); POTASSIUM 4.9 mmol/L (3.5-5.1); SODIUM 141 mmol/L (136-145)
[2024-01-28 20:27] LABS: ANION GAP 13 mmol/L (4-13); BLOOD UREA NITROGEN 9.3 mg/dL (7-18); CALCIUM 9.1 mg/dL (8.5-10.1); CO2 23 mmol/L (21-32); GLUCOSE,RANDOM 221 mg/dL (74-106)
[2024-01-28 20:28] LABS: ALBUMIN 3.4 g/dl (3.4-5.0)
[2024-01-28 20:30] LABS: CREATININE 1.3 mg/dL (0.55-1.3); SGPT/ALT 39 U/L (13-61)
[2024-01-28 20:31] LABS: SGOT/AST 69 U/L (15-37)
[2024-01-28 20:32] LABS: BILIRUBIN,TOTAL 0.7 mg/dL (0.2-1); TOT PROT 6.8 g/dl (6.4-8.2)
[2024-01-28 20:33] LABS: ALK PHOS 109 U/L (45-117)
[2024-01-28 21:38] LABS: BASO % 0.8 % (0-2.0); EOS % 0.1 % (0-4.5); HEMOGLOBIN 15.2 GM/dL (10.7-15.3); LYMPH % 3.8 % (8-40); MCH 31.3 pg (25.7-33.7); MEAN CELL VOLUME 94.7 fl (80-96); MEAN PLT VOLUME 7.4 fl (7.5-11.1); MONO % 9.4 % (3.8-10.2); NEUT % 85.9 % (42.8-82.8); PLATELET COUNT 273 10^3/uL (134-434); RBC 4.86 M/mm3 (3.60-5.2); RDW 15.2 % (11.6-15.6); WHITE BLOOD COUNT 14.5 K/mm3 (4.0-10.0)
[2024-01-28] MEDS ORDERED: CEFTRIAXONE 1 GM/50 ML BAG ONE (23:24)
[2024-01-28] MEDS ORDERED: ACETAMINOPHEN 325 MG TABLET (FP) PO PRN (23:28)
[2024-01-28] MEDS: CEFTRIAXONE 1 GM in DEXTROSE 5%-WATER - 100 ML IVPB ONE (23:30)
[2024-01-28] MEDS: INSULIN ASPART SLIDING SCALE (NOVOLOG) 1 VIAL SQ SCH (23:31)
[2024-01-29] MEDS: INSULIN ASPART SLIDING SCALE (NOVOLOG) 1 VIAL SQ SCH (00:09)
[2024-01-29] MEDS ORDERED: AZITHROMYCIN IVPB 500 MG/250 ML BAG IVPB ONE (01:22)
[2024-01-29] MEDS ORDERED: traZODone HCL 50 MG TABLET (FP) ONE (01:28)
[2024-01-29] MEDS: AZITHROMYCIN IVPB 500 MG in DEXTROSE 5%-WATER - 250 ML IVPB ONE (01:44)
[2024-01-29] MEDS: LACTATED RINGERS SOLUTION 1,000 ML/1,000 ML INFUS.BAG IV SCH (01:45)
[2024-01-29] MEDS: traZODone HCL 50 MG TABLET (FP) PO SCH (01:45)
[2024-01-29] MEDS ORDERED: AMPICILLIN NA/SULBACTAM NA 3 GM/100 ML BAG IVPB ONE ×3 (02:57→14:20)
[2024-01-29] MEDS: AMPICILLIN NA/SULBACTAM NA 3 GM in SODIUM CHLORIDE 100 ML IVPB SCH (03:04)
[2024-01-29 08:39] LABS: BASO % 0.3 % (0-2.0); EOS % 0.8 % (0-4.5); HEMATOCRIT 44.7 % (32.4-45.2); HEMOGLOBIN 15.1 GM/dL (10.7-15.3); MCH 31.8 pg (25.7-33.7); MCHC 33.7 g/dl (32.0-36.0); MEAN CELL VOLUME 94.2 fl (80-96); MEAN PLT VOLUME 7.7 fl (7.5-11.1); MONO % 9.2 % (3.8-10.2); NEUT % 73.7 % (42.8-82.8); PLATELET COUNT 261 10^3/uL (134-434); RBC 4.75 M/mm3 (3.60-5.2); RDW 14.8 % (11.6-15.6); WHITE BLOOD COUNT 8.1 K/mm3 (4.0-10.0)
[2024-01-29 08:41] LABS: INR 1.06 (0.83-1.09)
[2024-01-29 08:44] LABS: ACTIVATED PTT 29.9 SECONDS (25.2-36.5)
[2024-01-29] MEDS ORDERED: risperiDONE 0.5 MG TABLET ONE (08:44)
[2024-01-29 08:53] LABS: POTASSIUM 4.3 mmol/L (3.5-5.1)
[2024-01-29 08:55] LABS: BLOOD UREA NITROGEN 11.1 mg/dL (7-18); CALCIUM 8.8 mg/dL (8.5-10.1)
[2024-01-29 08:59] LABS: CREATININE 0.9 mg/dL (0.55-1.3)
[2024-01-29 09:00] LABS: BILIRUBIN,TOTAL 1.2 mg/dL (0.2-1); TOT PROT 5.9 g/dl (6.4-8.2)
[2024-01-29] MEDS: risperiDONE 0.5 MG TABLET PO SCH (09:02)
[2024-01-29] MEDS: ENOXAPARIN NA (PORCINE) 40 MG/0.4 ML DISP.SYRIN SQ SCH (09:58)
[2024-01-29] MEDS: FLUoxetine HCL 20 MG CAPSULE PO SCH (09:58)
[2024-01-29] MEDS: METOPROLOL TARTRATE 50 MG TABLET (FP) PO SCH (09:58)
[2024-01-29] MEDS ORDERED: INSULIN ASPART SLIDING SCALE (NOVOLOG) 1 VIAL SQ ONE (18:31)
[2024-01-29] MEDS ORDERED: risperiDONE 1 MG TABLET PO SCH (21:00)
[2024-01-29] MEDS ORDERED: TOPIRAMATE 200 MG PO SCH (22:00)
[2024-01-29] MEDS: clonazePAM 2 MG TABLET PO PRN (23:12)
[2024-01-30 03:32] VITALS: BMI 30.2
[2024-01-30] MEDS: HYDROCHLOROTHIAZIDE 25 MG TABLET (FP) PO SCH (08:09)
[2024-01-30 08:27] LABS: BASO % 0.5 % (0-2.0); HEMATOCRIT 45.2 % (32.4-45.2); HEMOGLOBIN 15.2 GM/dL (10.7-15.3); LYMPH % 11.6 % (8-40); MCH 31.4 pg (25.7-33.7); MCHC 33.7 g/dl (32.0-36.0); MEAN CELL VOLUME 93.1 fl (80-96); MEAN PLT VOLUME 7.6 fl (7.5-11.1); MONO % 9.1 % (3.8-10.2); NEUT % 77.8 % (42.8-82.8); PLATELET COUNT 257 10^3/uL (134-434); RBC 4.85 M/mm3 (3.60-5.2); RDW 14.9 % (11.6-15.6); WHITE BLOOD COUNT 6.8 K/mm3 (4.0-10.0)
[2024-01-30 08:53] LABS: POTASSIUM 4.1 mmol/L (3.5-5.1)
[2024-01-30] MEDS: ESCITALOPRAM OXALATE 20 MG TABLET PO SCH (08:59)
[2024-01-30 09:01] LABS: BLOOD UREA NITROGEN 8.1 mg/dL (7-18)
[2024-01-30 09:04] LABS: CREATININE 0.8 mg/dL (0.55-1.3)
[2024-01-30 09:05] LABS: BILIRUBIN,TOTAL 0.9 mg/dL (0.2-1); TOT PROT 5.9 g/dl (6.4-8.2)
[2024-01-30] MEDS ORDERED: HYDROCHLOROTHIAZIDE 25 MG TABLET (FP) PO SCH (10:00)
[2024-01-30] MEDS ORDERED: INSULIN ASPART SLIDING SCALE (NOVOLOG) 1 VIAL SQ ONE (12:02)
[2024-01-30] MEDS: clonazePAM 2 MG TABLET PO SCH (14:17)
[2024-01-30] MEDS: ACETAMINOPHEN 325 MG TABLET (FP) PO PRN (17:36)
[2024-01-30] MEDS ORDERED: ACETAMINOPHEN 325 MG TABLET (FP) PO PRN (17:53)
[2024-01-31] MEDS: hydrALAZINE HCL 20 MG/ML VIAL IVPB ONE ×2 (04:34→06:57)
[2024-01-31] MEDS: hydrALAZINE HCL 20 MG/ML VIAL IVPUSH ONE ×2 (08:25→08:26)
[2024-01-31] MEDS: DEXTROAMPHETAMINE/AMPHETAMINE 10 MG CAP.ER.24H PO SCH (08:25)
[2024-01-31] MEDS: LABETALOL HCL 5 MG/1 ML (100MG/20 ML VIAL) IVPB ONE (08:25)
[2024-01-31] MEDS ORDERED: ESCITALOPRAM OXALATE 10 MG TABLET ONE (08:38)
[2024-01-31 09:38] LABS: BASO % 0.3 % (0-2.0); HEMATOCRIT 46.4 % (32.4-45.2); HEMOGLOBIN 15.9 GM/dL (10.7-15.3); LYMPH % 12.6 % (8-40); MCH 31.6 pg (25.7-33.7); MCHC 34.4 g/dl (32.0-36.0); MEAN CELL VOLUME 92.1 fl (80-96); MEAN PLT VOLUME 7.4 fl (7.5-11.1); MONO % 7.5 % (3.8-10.2); NEUT % 78.6 % (42.8-82.8); PLATELET COUNT 284 10^3/uL (134-434); RBC 5.04 M/mm3 (3.60-5.2); RDW 14.5 % (11.6-15.6); WHITE BLOOD COUNT 5.8 K/mm3 (4.0-10.0)
[2024-01-31 09:59] LABS: POTASSIUM 3.3 mmol/L (3.5-5.1)
[2024-01-31 10:03] LABS: CALCIUM 9.7 mg/dL (8.5-10.1)
[2024-01-31 10:04] LABS: ALBUMIN 3.4 g/dl (3.4-5.0); BLOOD UREA NITROGEN 4.5 mg/dL (7-18); MAGNESIUM 1.7 mg/dL (1.8-2.4)
[2024-01-31 10:07] LABS: CREATININE 0.7 mg/dL (0.55-1.3); PHOSPHOROUS 2.9 mg/dL (2.5-4.9)
[2024-01-31 10:08] LABS: TOT PROT 6.2 g/dl (6.4-8.2)
[2024-01-31 10:09] LABS: BILIRUBIN,TOTAL 0.6 mg/dL (0.2-1)
[2024-01-31] MEDS: POTASSIUM CHLORIDE ORAL LIQUID 20 MEQ/15 ML PO ONE (14:35)
[2024-01-31] MEDS: MAGNESIUM 2GM/50ML STERILE WATER IVPB IVPB ONE (14:52)
[2024-01-31] MEDS: NICOTINE 14 MG/24 HOURS TOPICAL PATCH TD SCH (18:58)
[2024-02-01] MEDS ORDERED: METOCLOPRAMIDE HCL INJECTION 10 MG/2 ML VIAL IVPUSH ONE (08:30)
[2024-02-01 08:44] LABS: BASO % 0.4 % (0-2.0); EOS % 1.4 % (0-4.5); HEMOGLOBIN 16.5 GM/dL (10.7-15.3); LYMPH % 16.2 % (8-40); MCH 31.7 pg (25.7-33.7); MCHC 34.4 g/dl (32.0-36.0); MEAN CELL VOLUME 92.1 fl (80-96); MEAN PLT VOLUME 7.3 fl (7.5-11.1); MONO % 8.5 % (3.8-10.2); NEUT % 73.5 % (42.8-82.8); PLATELET COUNT 317 10^3/uL (134-434); RBC 5.21 M/mm3 (3.60-5.2); RDW 14.6 % (11.6-15.6); WHITE BLOOD COUNT 6.7 K/mm3 (4.0-10.0)
[2024-02-01 08:59] LABS: POTASSIUM 3.9 mmol/L (3.5-5.1)
[2024-02-01 09:08] LABS: ALBUMIN 3.2 g/dl (3.4-5.0); BLOOD UREA NITROGEN 5.4 mg/dL (7-18); CALCIUM 9.4 mg/dL (8.5-10.1); MAGNESIUM 2.1 mg/dL (1.8-2.4)
[2024-02-01 09:11] LABS: CREATININE 0.8 mg/dL (0.55-1.3); PHOSPHOROUS 4.3 mg/dL (2.5-4.9)
[2024-02-01 09:12] LABS: BILIRUBIN,TOTAL 0.7 mg/dL (0.2-1)
[2024-02-01 09:14] LABS: TOT PROT 6.2 g/dl (6.4-8.2)
[2024-02-01] MEDS ORDERED: ESCITALOPRAM OXALATE 10 MG TABLET ONE (10:37)
[2024-02-01] MEDS: METOCLOPRAMIDE HCL INJECTION 10 MG/2 ML VIAL IVPUSH ONE (11:59)
[2024-02-01] MEDS: hydrALAZINE HCL 20 MG/ML VIAL IVPUSH PRN (12:07)
[2024-02-01] MEDS ORDERED: BUPIVACAINE HCL/PF 0.25% (2.5MG/ML) 10 ML VIAL ONE (14:29)
[2024-02-01] MEDS ORDERED: ONDANSETRON 4 MG/2 ML VIAL IVPUSH PRN ×2 (16:04→18:14)
[2024-02-01] MEDS ORDERED: oxyCODONE HCL 5 MG TABLET PO PRN ×4 (16:04→18:14)
[2024-02-01] MEDS ORDERED: LACTATED RINGERS SOLUTION 1,000 ML IV SCH ×2 (16:15→18:14)
[2024-02-01] MEDS ORDERED: PROPOFOL 40 ML ONE (16:15)
[2024-02-01] MEDS ORDERED: ROCURONIUM BROMIDE 50 MG/5 ML SYRINGE ONE (16:15)
[2024-02-01] MEDS ORDERED: ONDANSETRON 4 MG/2 ML VIAL ONE (16:15)
[2024-02-01] MEDS ORDERED: LIDOCAINE HCL/PF 2% SDV 5ML VIAL ONE (16:15)
[2024-02-01] MEDS ORDERED: MIDAZOLAM HCL 2 MG/2 ML SINGLE DOSE VIAL ONE (16:15)
[2024-02-01] MEDS ORDERED: DEXAMETHASONE SOD PHOSPHATE 4 MG/1 ML VIAL ONE (16:15)
[2024-02-01] MEDS: cefOXitin SODIUM 2 GM VIAL (RESTRICTED TO ID) IVPB ONE (16:46)
[2024-02-01] MEDS ORDERED: cefOXitin SODIUM 2 GM VIAL (RESTRICTED TO ID) IVPB ONE (16:46)
[2024-02-01] MEDS: BUPIVACAINE HCL/PF 0.25% (2.5MG/ML) 10 ML VIAL IJ ONE (16:52)
[2024-02-01] MEDS ORDERED: NEOSTIGMINE METHYLSULFATE 0.5 MG/1 ML - 10 ML MDV ONE (17:37)
[2024-02-01] MEDS ORDERED: hydrALAZINE HCL 20 MG/ML VIAL IVPUSH PRN (18:14)
[2024-02-01] MEDS ORDERED: KETOROLAC TROMETHAMINE 30 MG/1 ML VIAL IVPUSH PRN (18:14)
[2024-02-01] MEDS: ACETAMINOPHEN 1000 MG/100 ML BAG IVPB SCH (18:21)
[2024-02-01] MEDS: LACTATED RINGERS SOLUTION 1,000 ML IV SCH (18:23)
[2024-02-01 19:32] VITALS: RESP 18
[2024-02-01] MEDS: traZODone HCL 50 MG TABLET (FP) PO SCH (21:08)
[2024-02-01] MEDS: AMPICILLIN NA/SULBACTAM NA 3 GM in SODIUM CHLORIDE 100 ML IVPB SCH (21:09)
[2024-02-01] MEDS: clonazePAM 2 MG TABLET PO SCH (21:09)
[2024-02-01] MEDS: INSULIN ASPART SLIDING SCALE (NOVOLOG) 1 VIAL SQ SCH (21:17)
[2024-02-01] MEDS: DEXTROAMPHETAMINE/AMPHETAMINE 10 MG CAP.ER.24H PO SCH (21:31)
[2024-02-02 04:10] VITALS: BP 122/78; PULSE 99; TEMP 97.2
[2024-02-02 09:01] LABS: BASO % 0.1 % (0-2.0); HEMATOCRIT 46.7 % (32.4-45.2); HEMOGLOBIN 16.1 GM/dL (10.7-15.3); LYMPH % 4.1 % (8-40); MCH 32.1 pg (25.7-33.7); MCHC 34.6 g/dl (32.0-36.0); MEAN CELL VOLUME 92.8 fl (80-96); MEAN PLT VOLUME 7.2 fl (7.5-11.1); MONO % 5.4 % (3.8-10.2); NEUT % 90.4 % (42.8-82.8); PLATELET COUNT 309 10^3/uL (134-434); RBC 5.03 M/mm3 (3.60-5.2); RDW 14.3 % (11.6-15.6); WHITE BLOOD COUNT 8.8 K/mm3 (4.0-10.0)
[2024-02-02 09:17] LABS: POTASSIUM 4.2 mmol/L (3.5-5.1)
[2024-02-02 09:19] LABS: CALCIUM 9.2 mg/dL (8.5-10.1)
[2024-02-02] MEDS: ESCITALOPRAM OXALATE 20 MG TABLET PO SCH (09:19)
[2024-02-02 09:20] LABS: ALBUMIN 3.2 g/dl (3.4-5.0); BLOOD UREA NITROGEN 9.9 mg/dL (7-18)
[2024-02-02 09:23] LABS: CREATININE 0.9 mg/dL (0.55-1.3); PHOSPHOROUS 4.6 mg/dL (2.5-4.9)
[2024-02-02] MEDS ORDERED: ESCITALOPRAM OXALATE 10 MG TABLET ONE (09:23)
[2024-02-02] MEDS: METOPROLOL TARTRATE 50 MG TABLET (FP) PO SCH (09:24)
[2024-02-02] MEDS: HYDROCHLOROTHIAZIDE 25 MG TABLET (FP) PO SCH (09:24)
[2024-02-02] MEDS: NICOTINE 14 MG/24 HOURS TOPICAL PATCH TD SCH (09:24)
[2024-02-02 09:25] LABS: BILIRUBIN,TOTAL 0.8 mg/dL (0.2-1); TOT PROT 5.9 g/dl (6.4-8.2)
[2024-02-02] MEDS ORDERED: ACETAMINOPHEN 500 MG TABLET (FP) PO PRN (12:30)
== END 2024-02-02 14:56 | disposition home or self-care (01) | DRG 907 ==
LOC: JER 17:25 → JERBED 22:26 → J6S 01-29 20:34
PROVIDERS: ADMIT Internal Medicine; ATTEND Internal Medicine
PROC: 0FT44ZZ Resection of Gallbladder, Percutaneous Endoscopic Approach (ICD-10-PCS; principal; 2024-02-01 14:00)
DX: T40.2X1A Poisoning by other opioids, accidental (unintentional), initial encounter (principal); J69.0 Pneumonitis due to inhalation of food and vomit; K81.0 Acute cholecystitis; Y92.89 Other specified places as the place of occurrence of the external cause; I10 Essential (primary) hypertension; E11.9 Type 2 diabetes mellitus without complications; F41.8 Other specified anxiety disorders; F17.210 Nicotine dependence, cigarettes, uncomplicated; E87.6 Hypokalemia; E83.42 Hypomagnesemia
CPT/HCPCS: 36415; 71046-TC-FY; 71260-TC; 76705-TC; 80053; 80307; 82248; 82962; 83036; 83735; 84100; 85025; 85610; 85730; 86850; 86900; 86901; 87040; 88304-TC; 93005; 93010; 93306-TC; 94760; 97116-GP; 97161-GP; 99285-25; J0131; Q9967

== ENCOUNTER 2024-09-17 18:41 | Inpatient (IN) | payer BC, OTHER ==
[2024-09-17 20:43] LABS: BASO % 0.2 % (0-2.0); EOS % 0.3 % (0-4.5); HEMATOCRIT 47.9 % (32.4-45.2); HEMOGLOBIN 15.5 GM/dL (10.7-15.3); MCH 29.7 pg (25.7-33.7); MCHC 32.3 g/dl (32.0-36.0); MEAN CELL VOLUME 91.9 fl (80-96); MEAN PLT VOLUME 7.3 fl (7.5-11.1); MONO % 15.9 % (3.8-10.2); NEUT % 76.6 % (42.8-82.8); PLATELET COUNT 271 10^3/uL (134-434); RBC 5.21 M/mm3 (3.60-5.2); WHITE BLOOD COUNT 7.5 K/mm3 (4.0-10.0)
[2024-09-17 20:50] LABS: INR 1.3 (0.83-1.09); PROTHROMBIN TIME (PATIENT) 14.3 SEC (9.7-13.0)
[2024-09-17 20:50] LABS: VENOUS O2 SATURATION 40.8 % (70-80); VENOUS PH 7.322 (7.310-7.410)
[2024-09-17 20:57] LABS: VENOUS PCO2 71.9 mmHg (38-52)
[2024-09-17 21:08] LABS: CHLORIDE 85 mmol/L (98-107); POTASSIUM 3.6 mmol/L (3.5-5.1); SODIUM 129 mmol/L (136-145)
[2024-09-17 21:09] LABS: CALCIUM 8.5 mg/dL (8.5-10.1)
[2024-09-17 21:10] LABS: ALBUMIN 3.1 g/dl (3.4-5.0); ANION GAP 8 mmol/L (4-13); BLOOD UREA NITROGEN 25.5 mg/dL (7-18); CO2 37 mmol/L (21-32); GLUCOSE,RANDOM 205 mg/dL (74-106)
[2024-09-17 21:13] LABS: SGOT/AST 33 U/L (15-37); SGPT/ALT 29 U/L (13-61)
[2024-09-17 21:14] LABS: BILIRUBIN,TOTAL 0.8 mg/dL (0.2-1); TOT PROT 5.5 g/dl (6.4-8.2)
[2024-09-17 21:16] LABS: ALK PHOS 95 U/L (45-117)
[2024-09-17] MEDS ORDERED: ALBUTEROL SO4 2.5/IPRATROPIUM 0.5 INH SOL 3 ML VIAL.NEB. NEB ONE (23:26)
[2024-09-17] MEDS ORDERED: DEXAMETHASONE SOD PHOSPHATE 10 MG/1 ML VIAL ONE (23:26)
[2024-09-17] MEDS: DEXAMETHASONE SOD PHOSPHATE 10 MG/1 ML VIAL IVPUSH ONE (23:35)
[2024-09-17] MEDS: ALBUTEROL SO4 2.5/IPRATROPIUM 0.5 INH SOL 3 ML VIAL.NEB. NEB ONE (23:48)
[2024-09-18] MEDS ORDERED: ALBUTEROL SO4 HFA INHALER IH PRN ×2 (00:26→08:25)
[2024-09-18] MEDS: methylPREDNISolone NA SUCC 40 MG/1 ML VIAL IVPUSH SCH ×2 (03:38→10:39)
[2024-09-18] MEDS: REMDESIVIR 200 MG in SODIUM CHLORIDE 250 ML IVPB ONE ×2 (03:39→03:46)
[2024-09-18] MEDS: methylPREDNISolone NA SUCC 40 MG/1 ML VIAL IVPUSH ONE (03:39)
[2024-09-18] MEDS: HYDROCORTISONE SOD SUCCINATE 100 MG/2 ML VIAL IVPUSH ONE (03:40)
[2024-09-18] MEDS ORDERED: ASPIRIN 325 MG ENTERIC COATED TABLET (FP) PO ONE (04:51)
[2024-09-18] MEDS: ASPIRIN 325 MG TABLET PO SCH (04:59)
[2024-09-18] MEDS: ATORVASTATIN CA 80 MG TABLET (FP) PO SCH (04:59)
[2024-09-18 05:54] LABS: POTASSIUM 3.7 mmol/L (3.5-5.1)
[2024-09-18 05:56] LABS: ALBUMIN 3.4 g/dl (3.4-5.0); BLOOD UREA NITROGEN 19.2 mg/dL (7-18); CALCIUM 8.7 mg/dL (8.5-10.1); MAGNESIUM 1.9 mg/dL (1.8-2.4)
[2024-09-18 06:00] LABS: CREATININE 1.1 mg/dL (0.55-1.3); PHOSPHOROUS 4.4 mg/dL (2.5-4.9)
[2024-09-18 06:01] LABS: TOT PROT 5.9 g/dl (6.4-8.2)
[2024-09-18] MEDS ORDERED: ENOXAPARIN NA (PORCINE) 40 MG/0.4 ML DISP.SYRIN SQ SCH (10:00)
[2024-09-18] MEDS: ESCITALOPRAM OXALATE 20 MG TABLET PO SCH (10:39)
[2024-09-18] MEDS: ENOXAPARIN NA (PORCINE) 40 MG/0.4 ML DISP.SYRIN SQ SCH (10:40)
[2024-09-18] MEDS: SODIUM CHLORIDE 1,000 ML IV STA (10:44)
[2024-09-18 11:35] LABS: HEMATOCRIT 46.4 % (32.4-45.2); LYMPH % 6.3 % (8-40); MCH 29.6 pg (25.7-33.7); MCHC 32.3 g/dl (32.0-36.0); MEAN CELL VOLUME 91.6 fl (80-96); MEAN PLT VOLUME 7.5 fl (7.5-11.1); MONO % 6.5 % (3.8-10.2); NEUT % 87.2 % (42.8-82.8); PLATELET COUNT 260 10^3/uL (134-434); RBC 5.06 M/mm3 (3.60-5.2); RDW 15.9 % (11.6-15.6)
[2024-09-18] MEDS: INSULIN ASPART SLIDING SCALE (NOVOLOG) 1 VIAL SQ SCH (12:05)
[2024-09-18] MEDS: DEXTROAMPHETAMINE/AMPHETAMINE 10 MG CAP.ER.24H PO SCH (12:07)
[2024-09-18] MEDS: SODIUM CHLORIDE 1,000 ML IV SCH (12:19)
[2024-09-18] MEDS: DEXAMETHASONE SOD PHOSPHATE 10 MG/1 ML VIAL IM SCH (16:44)
[2024-09-18] MEDS ORDERED: methylPREDNISolone NA SUCC 40 MG/1 ML VIAL IVPUSH SCH (18:00)
[2024-09-18 18:12] LABS: HIV INTERPRETATION NEGATIVE (NEGATIVE)
[2024-09-18] MEDS: clonazePAM 0.5 MG TABLET PO PRN (18:48)
[2024-09-18] MEDS: TIOTROPIUM BROMIDE 2.5 MCG (SPIRIVA) RESPIMAT INHALER IH SCH (18:48)
[2024-09-18] MEDS: LEVALBUTEROL HCL 0.31 MG/3 ML VIAL.NEB IH SCH (20:00)
[2024-09-19 09:28] LABS: ARTERIAL BLD GAS O2 SATURATION 89.9 % (95-98); ARTERIAL BLOOD GAS BASE EXCESS 9.2 mmol/L (-2-2)
[2024-09-19 09:29] LABS: ALLENS TEST POSITIVE
[2024-09-19] MEDS ORDERED: REMDESIVIR 100 MG in SODIUM CHLORIDE 250 ML IVPB SCH (10:00)
[2024-09-19] MEDS: ASPIRIN 81 MG CHEWABLE TABLETS PO SCH (10:58)
[2024-09-19] MEDS: REMDESIVIR 100 MG in SODIUM CHLORIDE 250 ML IVPB SCH (10:59)
[2024-09-19 12:40] LABS: POTASSIUM 3.4 mmol/L (3.5-5.1)
[2024-09-19 12:44] LABS: CALCIUM 8.9 mg/dL (8.5-10.1)
[2024-09-19 12:45] LABS: BLOOD UREA NITROGEN 17.2 mg/dL (7-18)
[2024-09-19 12:49] LABS: CREATININE 0.8 mg/dL (0.55-1.3)
[2024-09-19] MEDS: POTASSIUM CHLORIDE ORAL LIQUID 20 MEQ/15 ML PO ONE (19:13)
[2024-09-19] MEDS: INSULIN ASPART SLIDING SCALE (NOVOLOG) 1 VIAL SQ SCH (21:55)
[2024-09-19 22:28] LABS: METHADONE, UR NEGATIVE (NEGATIVE); OPIATES, URI NEGATIVE (NEGATIVE); PHENCYCLIDINE,URINE NEGATIVE (NEGATIVE); URINE BARBITURATES NEGATIVE (NEGATIVE); URINE BENZODIAZEPINES NEGATIVE (NEGATIVE)
[2024-09-19 22:33] LABS: COCAINE, UR NEGATIVE (NEGATIVE); URINE AMPHETAMINES POSITIVE (NEGATIVE)
[2024-09-20 08:26] LABS: HEMATOCRIT 49.1 % (32.4-45.2); HEMOGLOBIN 15.7 GM/dL (10.7-15.3); MCH 29.6 pg (25.7-33.7); MEAN CELL VOLUME 92.5 fl (80-96); MEAN PLT VOLUME 7.2 fl (7.5-11.1); PLATELET COUNT 258 10^3/uL (134-434); RBC 5.31 M/mm3 (3.60-5.2); RDW 15.9 % (11.6-15.6); WHITE BLOOD COUNT 9.3 K/mm3 (4.0-10.0)
[2024-09-20 08:44] LABS: POTASSIUM 3.5 mmol/L (3.5-5.1)
[2024-09-20 09:13] LABS: CALCIUM 8.6 mg/dL (8.5-10.1); MAGNESIUM 1.8 mg/dL (1.8-2.4)
[2024-09-20 09:16] LABS: CREATININE 0.7 mg/dL (0.55-1.3); PHOSPHOROUS 1.8 mg/dL (2.5-4.9)
[2024-09-20] MEDS: ACETAMINOPHEN 500 MG TABLET (FP) PO PRN (10:36)
[2024-09-20 14:15] VITALS: RESP 18
[2024-09-20] MEDS: LOSARTAN 50MG/HCTZ 12.5MG 1 TAB PO SCH (14:52)
[2024-09-20] MEDS: LABETALOL HCL 20 MG/4 ML VIAL IVPUSH ONE ×2 (14:52→21:30)
[2024-09-20] MEDS: PNEUMOC 20-VAL CONJ-DIP CRM/PF 0.5 ML SYRINGE IM ONE (20:20)
[2024-09-20] MEDS: risperiDONE 1 MG TABLET PO ONE (21:29)
[2024-09-21 08:18] LABS: HEMATOCRIT 49.6 % (32.4-45.2); MCH 29.8 pg (25.7-33.7); MCHC 32.3 g/dl (32.0-36.0); MEAN CELL VOLUME 92.2 fl (80-96); MEAN PLT VOLUME 7.2 fl (7.5-11.1); PLATELET COUNT 252 10^3/uL (134-434); RBC 5.38 M/mm3 (3.60-5.2); RDW 15.6 % (11.6-15.6); WHITE BLOOD COUNT 9.9 K/mm3 (4.0-10.0)
[2024-09-21 08:37] LABS: POTASSIUM 3.4 mmol/L (3.5-5.1)
[2024-09-21 08:40] LABS: BLOOD UREA NITROGEN 17.2 mg/dL (7-18); CALCIUM 9.1 mg/dL (8.5-10.1)
[2024-09-21 08:41] LABS: MAGNESIUM 1.9 mg/dL (1.8-2.4)
[2024-09-21 08:44] LABS: CREATININE 0.8 mg/dL (0.55-1.3); PHOSPHOROUS 3.2 mg/dL (2.5-4.9)
[2024-09-21 14:09] VITALS: BP 156/99; PULSE 94; TEMP 99.1
[2024-09-21 14:45] VITALS: BMI 32.2
[2024-09-21] MEDS: POTASSIUM CHLORIDE ORAL LIQUID 20 MEQ/15 ML PO ONE (16:25)
== END 2024-09-21 17:41 | disposition home or self-care (01) | DRG 177 ==
LOC: JER 18:41 → JERBED 22:49 → OBSVTOIN 09-18 00:24 → J8W 09-18 01:09 → J4S 09-18 08:47
PROVIDERS: ADMIT Internal Medicine; ATTEND Internal Medicine
PROC: XW033E5 Introduction of Remdesivir Anti-infective into Peripheral Vein, Percutaneous Approach, New Technology Group 5 (ICD-10-PCS; principal; 2024-09-18)
DX: U07.1 COVID-19 (principal); G93.41 Metabolic encephalopathy; J96.21 Acute and chronic respiratory failure with hypoxia; J96.22 Acute and chronic respiratory failure with hypercapnia; I21.4 Non-ST elevation (NSTEMI) myocardial infarction; J44.1 Chronic obstructive pulmonary disease with (acute) exacerbation; E87.1 Hypo-osmolality and hyponatremia; I24.89 Other forms of acute ischemic heart disease; E11.9 Type 2 diabetes mellitus without complications; I10 Essential (primary) hypertension; F41.9 Anxiety disorder, unspecified; F32.A Depression, unspecified; E86.1 Hypovolemia; I16.0 Hypertensive urgency; Z72.0 Tobacco use; T40.2X1A Poisoning by other opioids, accidental (unintentional), initial encounter; Y92.89 Other specified places as the place of occurrence of the external cause
CPT/HCPCS: 0241U-QW; 36415; 36600; 70450-TC; 71045-TC-FY; 71275-TC; 80048; 80053; 80061; 80307; 82533; 82803; 82962; 83036; 83735; 84100; 84443; 84484; 85025; 85027; 85610; 85730; 86140; 87389; 93005; 93010; 93306-TC; 94660; 94761; 97116-GP; 97162-GP; 99285-25; G0378; J0248; J1100